=== PATIENT | female | born 1985 | race Caucasian/White ===

== ENCOUNTER 2020-10-14 02:44 | Inpatient (IN) ==
[2020-10-14] MEDS ORDERED: MEPERIDINE 50 MG/1 ML VIAL IM PRN (02:53)
[2020-10-14] MEDS ORDERED: ONDANSETRON 4 MG/2 ML VIAL IV PRN (02:53)
[2020-10-14] MEDS ORDERED: BUTORPHANOL 2 MG/ML VIAL IV PRN (02:53)
[2020-10-14] MEDS ORDERED: ACETAMINOPHEN 325 MG TABLET PO PRN ×2 (02:53→16:21)
[2020-10-14] MEDS ORDERED: LACTATED RINGERS 500 ML IV PRN (02:53)
[2020-10-14] MEDS: LACTATED RINGERS 1,000 ML IV SCH ×2 (03:18→11:23)
[2020-10-14 03:29] LABS: Basophils % 0.2 % (0.0-0.8); Eosinophils # 0.1 10*3/uL (0.0-0.87); Eosinophils % 1.4 % (0.00-10.9); Hematocrit 35.1 VOL% (35.7-47.0); Hemoglobin 11.8 GM/DL (12.0-16.0); Immature Granulocytes % 0.5 %; Immature Granulocytes Absolute 0.05 #; Lymphocytes # 1.7 10*3/uL (1.4-4.0); Lymphocytes % 17.9 % (21.3-54.2); Mean Corpuscular HGB Conc 33.6 GM/DL (32-36); Mean Corpuscular Volume 88.2 FL (87-102); Mean Platelet Volume 12.1 FL (9.6-12.0); Monocytes % 8.7 % (1.7-12.7); Neutrophils % 71.3 % (38.7-73.9); Platelet Count 178 T/CUMM (130-400); Red Blood Count 3.98 MC/CUMM (3.8-5.5); Red Cell Distribution Width 14.9 % (9.3-17.3); White Blood Count 9.3 T/CUMM (4-12)
[2020-10-14 03:52] LABS: Alanine Aminotransferase 17 U/L (13-56); Albumin 2.8 G/DL (3.4-5.0); Alkaline Phosphatase 142 U/L (45-117); Aspartate Amino Transferase 12 U/L (0-37); Bilirubin,Total < 0.39 MG/DL (0.2-1.0); Blood Urea Nitrogen 10 MG/DL (7-18); Calcium 8.7 MG/DL (8.5-10.1); Estimated Glom Filtration Rate 142 ML/MIN; Glucose 81 MG/DL (74-106); Total Protein 6.9 G/DL (6.4-8.3)
[2020-10-14 04:14] LABS: Platelet Estimate Adequate
[2020-10-14] MEDS: OXYTOCIN/LR 20 UNIT/1,000 ML BAG IV SCH ×2 (07:10→15:52)
[2020-10-14] MEDS ORDERED: diphenhydrAMINE 50 MG/1 ML VIAL IV PRN ×2 (07:38)
[2020-10-14] MEDS ORDERED: hydrOXYzine HCL 25 MG/1 ML VIAL IM PRN (07:38)
[2020-10-14] MEDS ORDERED: ONDANSETRON 4 MG/2 ML VIAL IV ONE (07:38)
[2020-10-14] MEDS ORDERED: FAMOTIDINE 20 MG/2 ML VIAL IV ONE (07:38)
[2020-10-14] MEDS ORDERED: PROMETHAZINE 25 MG/1 ML VIAL IM ONE (07:38)
[2020-10-14] MEDS ORDERED: ePHEDrine 50 MG/ML VIAL IV PRN (07:38)
[2020-10-14] MEDS ORDERED: NALOXONE 0.4 MG/ML VIAL IV PRN (07:38)
[2020-10-14] MEDS ORDERED: CITRIC ACID/SODIUM CITRATE 30 ML UDCUP PO ONE (07:38)
[2020-10-14] MEDS ORDERED: LACTATED RINGERS 250 ML IV PRN (07:38)
[2020-10-14] MEDS ORDERED: fentaNYL 2 MCG/ROPIV 0.2% EPID 100 ML EPIDURAL SCH (08:00)
[2020-10-14 11:40] LABS: Bilirubin,Urine Negative (Negative); Blood, Urine Negative (Negative); Glucose,Urine (UA) Negative (Negative); Ketones,Urine Negative (Negative); Mucus,Urine Occasional /LPF (Occasional); Nitrite,Urine Negative (Negative); Protein,Urine Negative; RBC,Urine 1 /HPF (0-4); Squamous Epithelial Cell,Urine Occasional /HPF (0-10); Urine Appearance CLEAR (Clear); Urine Color Yellow (Yellow); Urine Specific Gravity 1.016 (1.001-1.035); Urine Urobilinogen < 2.0 EU/DL (0.2-1.0); WBC,Urine <1 /HPF (0-6)
[2020-10-14] MEDS ORDERED: miSOPROStoL 200 MCG TABLET ONE (13:29)
[2020-10-14] MEDS ORDERED: TRANEXAMIC ACID 1,000 MG/10 ML VIAL ONE (13:29)
[2020-10-14] MEDS ORDERED: CARBOPROST TROMETHAMINE 250 MCG/ML AMP IM ONE (13:30)
[2020-10-14] MEDS ORDERED: METHYLERGONOVINE 0.2 MG/1 ML AMP ONE (13:30)
[2020-10-14] MEDS ORDERED: OXYTOCIN/LR 30 UNIT/1,000 ML BAG IV ONE (13:31)
[2020-10-14 14:03] LABS: Cord Arterial Blood HCO3 20.3 MMOL/L
[2020-10-14 14:06] LABS: Cord Venous Blood HCO3 22.5 MMOL/L; Cord Venous Blood PO2 20.1
[2020-10-14] MEDS ORDERED: RHO(D) IMMUNE GLOBULIN 300 MCG SYRINGE IM ONE (16:21)
[2020-10-14] MEDS ORDERED: HYDROCORTISONE 2.5% RECTAL CREAM 30 GM TUBE TOP PRN (16:21)
[2020-10-14] MEDS ORDERED: WITCH HAZEL PADS 100/JAR TOP PRN (16:21)
[2020-10-14] MEDS ORDERED: OXYTOCIN/LR 20 UNIT/1,000 ML BAG IV ONE (16:21)
[2020-10-14] MEDS ORDERED: oxyCODONE/ACETAMINOPHEN 5-325 MG TABLET PO PRN ×2 (16:21)
[2020-10-14] MEDS ORDERED: LANOLIN 50% CREAM 0.3 OZ TUBE TOP PRN (16:21)
[2020-10-14] MEDS ORDERED: IBUPROFEN 800 MG TABLET PO PRN (16:21)
[2020-10-14] MEDS ORDERED: MEASLES/MUMPS/RUBELLA VACCINE 0.5 ML VIAL SUBCUT ONE (16:21)
[2020-10-14] MEDS ORDERED: DIPH/TET/ACEL PERT BOOSTER VACCINE 0.5 ML VIAL IM ONE (16:21)
[2020-10-14] MEDS ORDERED: BISACODYL 10 MG SUPP RECTAL PRN (16:21)
[2020-10-14] MEDS ORDERED: BENZOCAINE 20%/MENTHOL 0.5% SPRAY 56 GM CAN TOP PRN (16:21)
[2020-10-14] MEDS: DOCUSATE SODIUM 100 MG CAPSULE PO SCH (20:56)
[2020-10-15 06:16] LABS: Basophils % 0.1 % (0.0-0.8); Eosinophils # 0.2 10*3/uL (0.0-0.87); Eosinophils % 2.7 % (0.00-10.9); Hematocrit 30.6 VOL% (35.7-47.0); Hemoglobin 10.1 GM/DL (12.0-16.0); Immature Granulocytes % 0.5 %; Immature Granulocytes Absolute 0.04 #; Lymphocytes # 1.4 10*3/uL (1.4-4.0); Lymphocytes % 19.2 % (21.3-54.2); Mean Corpuscular Volume 90.8 FL (87-102); Mean Platelet Volume 12.5 FL (9.6-12.0); Monocytes % 9.8 % (1.7-12.7); Neutrophils % 67.7 % (38.7-73.9); Platelet Count 123 T/CUMM (130-400); Red Blood Count 3.37 MC/CUMM (3.8-5.5); Red Cell Distribution Width 15.1 % (9.3-17.3); White Blood Count 7.4 T/CUMM (4-12)
[2020-10-15] MEDS: DOCUSATE SODIUM 100 MG CAPSULE PO SCH ×2 (08:21→21:13)
[2020-10-16 07:41] VITALS: BP 132/73
[2020-10-16] MEDS: DOCUSATE SODIUM 100 MG CAPSULE PO SCH (08:39)
== END 2020-10-16 11:30 | disposition home or self-care (01) | DRG 560 ==
LOC: N.LD 02:44 → N.OB 16:19
PROVIDERS: ADMIT Obstetrics & Gynecology; ATTEND Obstetrics & Gynecology